=== PATIENT | male | born 1960 | race Caucasian/White ===

== ENCOUNTER 2016-12-12 10:22 | Emergency (ER) | payer OTHER ==
[~2016-12-12] VITALS: Ht 167.6 cm; Wt 81.6 kg
[2016-12-12 10:35] VITALS: BP 192/92
[2016-12-12] MEDS ORDERED: LOSARTAN POTASS25 M1 PO (11:09)
[2016-12-12] MEDS ORDERED: PANTOPRAZOLE SO40 M1 PO (11:09)
--- NOTE | 2016-12-12 11:27 | ED UPPER/LOWER EXTREMITY COMPL ---
History of Present Illness General Chief Complaint: Lower Extremity Problems Stated Complaint: RIGHT KNEE PAIN Source: patient Exam Limitations: no limitations Vital Signs & Intake/Output Vital Signs & Intake/Output Vital Signs Date Time Temp Pulse Resp B/P B/P Pulse O2 O2 Flow FiO2 Mean Ox Delivery Rate 12/12 1035 96.9 82 18 192/92 98 Room Air Allergies Coded Allergies: No Known Allergies (12/12/16) Reconcile Medications Ibuprofen 600 MG TABLET 1 TAB PO Q6 PRN PAIN with food Losartan Potassium 25 MG TABLET 1 TAB PO DAILY HEART (Reported) Oxycodone HCl/Acetaminophen (Percocet 5-325 MG Tablet) 5 MG-325 MG TABLET 1 TAB PO Q4-6 PRN BREAKTHROUGH PAIN Oxycodone HCl/Acetaminophen (Percocet 5-325 MG Tablet) 5 MG-325 MG TABLET 1 TAB PO EVERY 6 HOUR PRN pain Pantoprazole Sodium 40 MG TABLET.DR 1 TAB PO DAILY GI (Reported) Triage Note: PT TO ED FOR R KNEE PAIN PAIN, STATES HE FELL YESTERDAY AND HAS BEEN HAVING PAIN SINCE. KNEE APPEARS SLIGHTLY SWOLLEN, TOOK [employer], REFUSING TYLENOL IN TRIAGE. Triage Nurses Notes Reviewed? yes Onset: Abrupt Duration: day(s): (1) Timing: multiple episodes today Severity: mild, moderate Pain/Injury Location: Right: Hip, Knee. Method of Injury: fall Modifying Factors: Worsens With: movement. HPI: 56 Y/O male presents to the ER for chief complaint of right knee since fall yesterday. Pain is also in right hip. Worse with walking and movement. Past History Travel History Traveled to [place] past 21 day No Medical History Any Pertinent Medical History? see below for history Neurological: NONE EENT: NONE Cardiovascular: hypertension Respiratory: NONE Gastrointestinal: GERD Hepatic: NONE Renal: NONE Musculoskeletal: NONE Psychiatric: NONE Endocrine: NONE Blood Disorders: NONE Cancer(s): NONE Surgical History Surgical History: non-contributory Psychosocial History What is your primary language Puerto Rican Tobacco Use: Current Daily Use Daily Tobacco Use Amount/Type: => 5 Cigarettes daily ETOH Use: denies use Illicit Drug Use: denies illicit drug use Family History Hx Contributory? No Review of Systems Review of Systems Constitutional: Denies: chills, fever. EENTM: Reports: no symptoms. Respiratory: Denies: cough, short of breath. Cardiovascular: Denies: chest pain. Gastrointestinal/Abdominal: Reports: no symptoms. Genitourinary: Reports: no symptoms. Musculoskeletal: Reports: joint pain, muscle pain, muscle stiffness. Denies: back pain. Skin: Reports: no symptoms. Neurological/Psychological: Reports: no symptoms. Hematologic/Endocrine: Denies: bruising, bleeding, polyuria, polydipsia. Immunological: Denies: splenectomy. All Other Systems: Reviewed and Negative Physical Exam Physical Exam General Appearance: well developed/nourished, alert, awake, mild distress Head: atraumatic Eyes: Bilateral: PERRL, EOMI. Ears, Nose, Throat: normal pharynx, normal ENT inspection, hearing grossly normal Neck: normal inspection, supple Cardiovascular/Respiratory: regular rate/rhythm Back: normal inspection Leg Left: normal range of motion, normal inspection Leg Right: normal range of motion, normal inspection Hip Left: normal range of motion, normal inspection Hip Right: normal range of motion, normal inspection, pain, limited range of motion Knee Left: normal range of motion, normal inspection Knee Right: swelling, pain, soft tissue tenderness, limited range of motion Foot Left: normal inspection, normal range of motion Foot Right: normal inspection, normal range of motion Skin: intact, normal color, warm/dry Lymphatic: no anterior cervical tim Progress Differential Diagnosis: dislocation, fracture, sprain Plan of Care: Orders Procedure Date/time Status Durable Medical Equipment 12/12 1242 Active Diagnostic Imaging: Viewed by Me: Radiology Read. Discussed w/RAD: Radiology Read. Comments: PATIENT: KALINA HICKS PRESENT AGE: 56 PATIENT ACCOUNT NO: [id number] : 56 LOCATION: [facility] ORDERING PHYSICIAN: ANH BARRIOS MD SERVICE DATE: 12/12/16 EXAM TYPE: RAD - XRY-HIP 2-3 VIEWS, RIGHT; XRY-KNEE COMPLETE RIGHT EXAMINATION: XR HIP, RIGHT XR KNEE, RIGHT CLINICAL INFORMATION: Right hip pain status post injury/fall yesterday. Right knee pain, unable to move after twisting injury yesterday. History of reconstruction surgery right knee. Evaluate for fracture. COMPARISON: None. TECHNIQUE: AP and frog lateral views of the right hip are obtained. AP, bilateral oblique, and lateral views of the right knee are obtained. FINDINGS: RIGHT HIP: There is no fracture or malalignment. There are no degenerative changes. RIGHT KNEE: There are postsurgical findings compatible with prior anterior cruciate ligament reconstruction. There is no acute fracture or malalignment. There is a small joint effusion. 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 There is diffuse soft tissue swelling in the region of the patellar tendon. This could be postsurgical or secondary to an acute injury. IMPRESSION: RIGHT HIP: Normal radiographs. RIGHT KNEE: 1. Small joint effusion. 2. 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 3. Nonspecific diffuse soft tissue swelling the region of the patellar tendon. This could be postsurgical or secondary to an acute injury. 4. No acute fracture. DICTATED BY: ROSEMARIE SALAZAR MD DATE/TIME DICTATED:12/12/161199 CORRECTIONAL THERAPY DIRECTOR:JAILYN DATE/TIME TRANSCRIBED:12/12/161199 CONFIDENTIAL, DO NOT COPY WITHOUT APPROPRIATE AUTHORIZATION. <Electronically signed in Other Vendor System> SIGNED BY: ROSEMARIE SALAZAR MD 1222 Departure Departure Time of Disposition: 1243 Disposition: HOME OR SELF CARE Condition: Stable Clinical Impression Primary Impression: Right knee sprain Referrals: CHRIS DELA CRUZ,JENNY Lee (PCP/Family) KARI NEWTON MD Additional Instructions: Take medications as prescribed. Use the knee immobilizer and crutches as directed. Ice, rest and elevate the knee as much as possible please follow up with either your previous orthopedic doctor who discharged her knee surgery or with the one listed on her discharge summary. Return as needed. Departure Forms: Customer Survey General Discharge Information Prescriptions: Current Visit Scripts Oxycodone HCl/Acetaminophen (Percocet 5-325 MG Tablet) 1 TAB PO Q4-6 PRN BREAKTHROUGH PAIN #10 TAB Ibuprofen 1 TAB PO Q6 PRN PAIN #30 TAB with food Procedures Splinting Location: right knee immobilizer
--- NOTE | 2016-12-12 12:22 | RADIOLOGY REPORT ---
EXAMINATION: XR HIP, RIGHT XR KNEE, RIGHT CLINICAL INFORMATION: Right hip pain status post injury/fall yesterday. Right knee pain, unable to move after twisting injury yesterday. History of reconstruction surgery right knee. Evaluate for fracture. COMPARISON: None. TECHNIQUE: AP and frog lateral views of the right hip are obtained. AP, bilateral oblique, and lateral views of the right knee are obtained. FINDINGS: RIGHT HIP: There is no fracture or malalignment. There are no degenerative changes. RIGHT KNEE: There are postsurgical findings compatible with prior anterior cruciate ligament reconstruction. There is no acute fracture or malalignment. There is a small joint effusion. 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 There is diffuse soft tissue swelling in the region of the patellar tendon. This could be postsurgical or secondary to an acute injury. IMPRESSION: RIGHT HIP: Normal radiographs. RIGHT KNEE: 1. Small joint effusion. 2. 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 3. Nonspecific diffuse soft tissue swelling the region of the patellar tendon. This could be postsurgical or secondary to an acute injury. 4. No acute fracture.
[2016-12-12] MEDS ORDERED: PERCOCET 5-3251 EACH PO (12:42)
[2016-12-12] MEDS ORDERED: IBUPROFEN600 M1 PO (12:42)
== END 2016-12-12 12:58 ==
LOC: ERH 10:22
DX: S83.91XA Sprain of unspecified site of right knee, initial encounter (principal); W19.XXXA Unspecified fall, initial encounter; Y92.9 Unspecified place or not applicable; Y93.9 Activity, unspecified
CPT/HCPCS: 73502-RT; 73562-RT; 96372; J1885

== ENCOUNTER 2016-12-15 13:20 | Emergency (ER) | payer OTHER ==
[~2016-12-15] VITALS: Ht 167.6 cm; Wt 81.6 kg
[~2016-12-15 13:20] MED LIST: IBUPROFEN600 M1 PO; LOSARTAN POTASS25 M1 PO; PANTOPRAZOLE SO40 M1 PO; PERCOCET 5-3251 EACH PO
[2016-12-15 13:25] VITALS: BP 171/99
--- NOTE | 2016-12-15 14:41 | ED GENERAL ADULT ---
History of Present Illness General Chief Complaint: General Adult Stated Complaint: PAIN MEDICATION REFILL Source: patient Exam Limitations: no limitations Vital Signs & Intake/Output Vital Signs & Intake/Output Vital Signs Date Time Temp Pulse Resp B/P B/P Pulse O2 O2 Flow FiO2 Mean Ox Delivery Rate 12/15 1325 97.5 76 16 171/99 98 Room Air Allergies Coded Allergies: No Known Allergies (12/12/16) Reconcile Medications Ibuprofen 600 MG TABLET 1 TAB PO Q6 PRN PAIN with food Losartan Potassium 25 MG TABLET 1 TAB PO DAILY HEART (Reported) Oxycodone HCl/Acetaminophen (Percocet 5-325 MG Tablet) 5 MG-325 MG TABLET 1 TAB PO Q4-6 PRN BREAKTHROUGH PAIN Pantoprazole Sodium 40 MG TABLET. 1 TAB PO DAILY GI (Reported) Triage Note: PT HERE FOR MED REFILL PAIN IN RIGHT KNEE. PT STATES HE CALLED ORTHO AND CAN'T GET IN UNTIL THURSDAY Triage Nurses Notes Reviewed? yes HPI: 48-year-old male with a history of hypertension presenting for medication refill. Patient was seen in the ED 3 days ago for traumatic right knee pain. Had negative plain films, ligament injury was suspected, was discharged home with Percocet and ortho follow-up. Has had good pain relief from Percocet which he alternates with ibuprofen. Appointment with ortho is in 2 days which was the soonest available. Patient requesting pain medication to last him until he is able to see ortho in 2 days as he does not get pain relief from ibuprofen alone. Denies any numbness or paresthesias to the extremity. Has been ambulating with a cane Past History Travel History Traveled to [place] past 21 day No Medical History Any Pertinent Medical History? see below for history Neurological: NONE EENT: NONE Cardiovascular: hypertension Respiratory: NONE Gastrointestinal: GERD Hepatic: NONE Renal: NONE Musculoskeletal: NONE Psychiatric: NONE Endocrine: NONE Blood Disorders: NONE Cancer(s): NONE Surgical History Surgical History: non-contributory Psychosocial History What is your primary language Mongolian Tobacco Use: Current Daily Use Daily Tobacco Use Amount/Type: => 5 Cigarettes daily ETOH Use: denies use Illicit Drug Use: denies illicit drug use Family History Hx Contributory? No Review of Systems Review of Systems Constitutional: Reports: no symptoms. Respiratory: Reports: no symptoms. Cardiovascular: Reports: no symptoms. Musculoskeletal: Reports: joint pain (right knee). Denies: joint swelling, muscle pain, muscle stiffness. Skin: Reports: no symptoms. Neurological/Psychological: Denies: numbness. Physical Exam Physical Exam General Appearance: well developed/nourished, no apparent distress Head: atraumatic Respiratory: normal breath sounds, lungs clear Cardiovascular: regular rate/rhythm Extremities: patient with brace to his right knee, no edema, erythema,or ecchymosis, diffusely tender to palpation, decreased range of motion, no instability with anterior/posterior drawer or valgus/varus stress test, sensation intact, decreased motor strength, able to ambulate with steady gait using cane. Core Measures ACS in differential dx? No CVA/TIA Diagnosis: No Severe Sepsis Present: No Septic Shock Present: No Progress Differential Diagnoses I considered the following diagnoses in my evaluation of the patient: [Ligament sprain versus muscle strain versus contusion] Plan of Care: Patient given additional Percocet to last until his ortho appointment on Thursday. Instructed to continue to use ibuprofen intermittently to help with inflammation. Instructed to continue applying ice to help alleviate pain. Initial ED EKG: none Departure Departure Disposition: HOME OR SELF CARE Condition: Stable Clinical Impression Primary Impression: Knee pain, right Referrals: CHRIS DELA CRUZ,JENNY Lee (PCP/Family) Additional Instructions: Use one tablet Percocet every 4-6 hours as needed for knee pain. He may use ibuprofen for breakthrough pain. Apply ice to the knee 2-3 times daily. Follow -up with ortho on Thursday as scheduled. Return to the ED for any new or worsening symptoms. Departure Forms: Customer Survey General Discharge Information Critical Care Note Critical Care Note Critical Care Time: non-applicable
[2016-12-15] MEDS ORDERED: PERCOCET 5-3251 EACH PO (14:53)
== END 2016-12-15 15:08 ==
LOC: ERH 13:20
DX: M25.561 Pain in right knee (principal)
CPT/HCPCS: 99281